=== PATIENT | male | born 1980 | race Caucasian/White ===

== ENCOUNTER 2025-05-21 14:36 | Emergency (ER) | payer BC, SELFPAY ==
[2025-05-21 14:43] VITALS: BP 132/86; PULSE 96; RESP 18; TEMP 36.7; O2SAT 99; BMI 28.9
--- NOTE | 2025-05-21 14:55 | ED_ITS ---
HPI - General Adult General Date Seen: 05/21/25 Chief complaint: Dizziness/Vertigo Stated complaint: vomiting, dizzy Time Seen by Provider: 05/21/25 14:37 History of Present Illness HPI narrative: Patient is a 45-year-old here at the insistence of his to be checked out for an episode this morning of feeling lightheaded and dizzy. He says he was at work at about 8:00 a.m., was not doing anything strenuous, and said he felt lightheaded and kind of sweaty, faint. He did not have any chest pain or difficulty breathing. He did have 1 small emesis at that time. He otherwise has been feeling well, no other vomiting or diarrhea, no black or bloody stools, no abdominal or back pain. He says he has a history of passing out once a couple of years ago when he had an abscess related to hidradenitis super T of a, and so when his came home at old lunchtime she insisted that he come in to be seen. He says that he left work about 931 home to rest and feels improved although not maybe back 100% of baseline. He has a very mild headache, no neck pain. He quit smoking a couple of years ago drinking 4 years ago, does still smoke marijuana. Related Data Home Medications ?Medication ?Instructions ?Recorded ?Confirmed No Known Home Medications 05/21/2505/06 Allergies Allergy/AdvReac Type Severity Reaction Status Date / Time No Known Drug Allergies Allergy Verified 05/21/25 14:47 Review of Systems Status of ROS: Reports: 10 or more systems reviewed and unremarkable except as noted in History and below [facility] Social History Non-prescribed substance use: denies use Exam Narrative: Exam Narrative: Vital signs reviewed In general, alert, nontoxic middle age male. Head: Normocephalic, atraumatic. Eyes: Sclera clear. Pupils equal and reactive. ENT: Mucous membranes moist. Throat normal, tonsils absent. TMs normal bilaterally. Neck: Supple without adenopathy. Heart: Regular rate and rhythm without murmur. Lungs: Clear. No increased work of breathing, crackles or wheezes. Abdomen: Soft, nontender to palpation. Extremities: Well perfused, pulses intact. No significant edema. Neurologic: Alert, conversant. Speech fluent, face symmetric. Moves all extremities equally. Skin: Warm, dry well perfused. Affect: Normal. Const: Vital Signs, click to edit/add: Vital Signs - 24 hr 05/21/25 14:43 Temperature 98.0 F Pulse Rate [Pulse Oximeter] 96 Respiratory Rate 18 Blood Pressure [Ri ght Upper Arm] 132/86 Pulse Oximetry 99 Oxygen Delivery Me thod Room Air Course Course ED Course: Patient presents with a near syncopal episode earlier this morning associated with diaphoresis and 1 small episode of vomiting. Overall symptoms improved. Exam is unrevealing. Labs reviewed all are normal. At this time, no clear cause for symptoms is found but patient is well appearing, symptoms have resolved, I think it is reasonable to let him go home. Primary care follow-up recommended if he is having ongoing symptoms, return any time for acute worsening or new symptoms. Vital Signs Vital signs: Initial Vital Signs Temperature 98.0 F 05/21/25 14:43 Temperature Source Temporal Artery Scan 05/21/25 14:43 Pulse Rate 96 05/21/25 14:43 Respiratory Rate 18 05/21/25 14:43 Blood Pressure 132/86 05/21/25 14:43 Blood Pressure Mean 101 05/21/25 14:43 Blood Pressure Position Sitting 05/21/25 14:43 Pulse Oximetry 99 05/21/25 14:43 Oxygen Delivery Method Room Air 05/21/25 14:43 Vital Signs Temperature 98.0 F 05/21/25 14:43 Pulse Rate 96 05/21/25 14:43 Respiratory Rate 18 05/21/25 14:43 Blood Pressure 132/86 05/21/25 14:43 Pulse Oximetry 99 05/21/25 14:43 Oxygen Delivery Method Room Air 05/21/25 14:43 Temperature 98.0 F 05/21/25 14:43 Pulse Rate 96 05/21/25 14:43 Respiratory Rate 18 05/21/25 14:43 Blood Pressure 132/86 05/21/25 14:43 Pulse Oximetry 99 05/21/25 14:43 Oxygen Delivery Method Room Air 05/21/25 14:43 Medical Decision Making Lab Data Lab results reviewed: Yes I reviewed the patient's lab results Labs: Lab Results 09/16/25 09/16/25 Range/Units 14:55 15:14 WBC 5.95 (4.50-11.00) K/uL RBC 5.04 (4.30-5.90) m/uL Hgb 15.0 (13.5-17.5) gm/dL Hct 44.8 (37.0-53.0) % MCV 89 (80-100) fL MCH 30 (26-34) pg MCHC 34 (32-36) gm/dL RDW Coeff of [place] 12.6 (11.5-15.5) % Plt Count 206 (140-440) K/uL Neut % (Auto) 67.2 (42.0-72.0) % Lymph % (Auto) 23.0 (20-44) % [place] % (Auto) 6.4 (0.0-11.0) % Eos % (Auto) 2.7 (0.0-7.0) % Baso % (Auto) 0.5 (0.0-3.0) % Neut # (Auto) 4.00 (1.7-7.0) K/uL Lymph # (Auto) 1.37 (0.90-2.90) K/uL [place] # (Auto) 0.40 (0.00-0.90) K/UL Eos # (Auto) 0.16 (0.00-0.50) K/uL Baso # (Auto) 0.03 (0.00-0.30) K/uL Abs Immat Gran (auto) 0.01 (0.00-0.30) K/uL Imm/Tot Granulo (auto) 0.2 % Sodium 138 (135-149) mmol/L Potassium 4.3 (3.6-5.1) mmol/L Chloride 103 (96-114) mmol/L Carbon Dioxide 29 (20-32) mmol/L Anion Gap 6 L (7-15) mEq/L BUN 16 (5-24) mg/dL Creatinine 1.0 (0.5-1.5) mg/dL Estimated Creat Clear 91.20 Estimated GFR 95 ml/min Glucose 98 (60-115) mg/dL Lactate 1.2 (0.5-1.9) mmol/L Calcium 9.3 (8.4-10.6) mg/dL Total Bilirubin 0.6 (0.1-1.5) mg/dL AST 36 H (12-35) U/L ALT 21 (4-50) U/L Alkaline Phosphatase 51 (40-150) U/L Total Protein 7.4 (6.0-8.3) g/dL Albumin 4.5 (3.3-5.0) g/dL POC Troponin I 0.00 L (0.01-0.04) ng/ml Discharge Plan Discharge Clinical Impression: Light-headedness Patient Disposition: Home, Self-Care Condition: Stable Instructions: Lightheadedness (ED) Additional Instructions: Labs today are all very reassuring, your hemoglobin is normal, kidney function, liver function, electrolytes an EKG all look good. I am not able to tell you exactly why you are feeling poorly this morning, but I think we have ruled out dangerous causes. If you have recurrent problems, have fainting, fevers, chest pain or other new or worsening symptoms, return any time. See her primary doctor if you have ongoing concerns. Prescriptions: No Action No Known Home Medications Follow Up/Referrals: Provider,Not a Local [Primary Care Provider, Family Practice] Stand Alone Forms: Anywhere to [facility] Info Instructions
[2025-05-21 15:19] LABS: Lactate Sepsis w/Reflex* 1.2 mmol/L (0.5-1.9)
[2025-05-21 15:24] LABS: Hematocrit* 44.8 % (37.0-53.0); Hemoglobin* 15.0 gm/dL (13.5-17.5); Immature Granulocytes Abs Auto 0.01 K/uL (0.00-0.30); Immature Granulocytes Pct Auto 0.2 %; Lymphocytes Absolute Auto 1.37 K/uL (0.90-2.90); Mean Corpuscular HGB Conc 34 gm/dL (32-36); Mean Corpuscular Hemoglobin 30 pg (26-34); Mean Corpuscular Volume 89 fL (80-100); RDW Coefficient of Variation % 12.6 % (11.5-15.5); Red Blood Count* 5.04 m/uL (4.30-5.90); Slide Review Reflex No; White Blood Count* 5.95 K/uL (4.50-11.00)
[2025-05-21 15:39] LABS: Albumin* 4.5 g/dL (3.3-5.0); Chloride* 103 mmol/L (96-114); Potassium* 4.3 mmol/L (3.6-5.1); Sodium* 138 mmol/L (135-149)
[2025-05-21 15:41] LABS: Blood Urea Nitrogen* 16 mg/dL (5-24); Creatinine* 1.0 mg/dL (0.5-1.5); Est. Creatinine Clearance* 91.20; Estimated Glomerular Filt Rate 95 ml/min
[2025-05-21 15:42] LABS: Alanine Aminotransferase* 21 U/L (4-50); Alkaline Phosphatase* 51 U/L (40-150); Anion Gap 6 mEq/L (7-15); Aspartate Amino Transferase* 36 U/L (12-35); Bilirubin Total* 0.6 mg/dL (0.1-1.5); Calcium* 9.3 mg/dL (8.4-10.6); Carbon Dioxide* 29 mmol/L (20-32); Glucose* 98 mg/dL (60-115); Total Protein* 7.4 g/dL (6.0-8.3)
[2025-05-21 16:07] LABS: Troponin, Point-of-Care* 0.00 ng/ml (0.01-0.04)
== END 2025-05-21 16:13 | disposition home or self-care (01) ==
PROVIDERS: Emergency Provider Emergency Medicine
DX: R42 Dizziness and giddiness (principal); R61 Generalized hyperhidrosis; R11.10 Vomiting, unspecified
CPT/HCPCS: 36415; 80053; 83605; 84484; 85025; 93005; 99284

== ENCOUNTER 2025-06-05 08:37 | Outpatient (CLI) | payer BC, SELFPAY | END 2025-06-05 08:38 | disposition home or self-care (01) | LOC: NFLDREF 06-07 14:04 | PROVIDERS: PCP Family Medicine; Referring Provider Family Medicine; Visit Provider Family Medicine | DX: L05.91 Pilonidal cyst without abscess (principal); E78.5 Hyperlipidemia, unspecified | CPT/HCPCS: 80053; 80061; G0103 ==

== ENCOUNTER 2025-06-13 11:53 | Outpatient (CLI) | payer BC, SELFPAY ==
--- NOTE | 2025-06-13 13:47 | P.ANES_ITS ---
Anesthesia Charges Start Date/Time Anesthesia Start Date: 06/13/25 Anesthesia Start Time: 13:03 Stop Date/Time Anesthesia Stop Date: 06/13/25 Anesthesia Stop Time: 13:45 Coding CPT Codes CPT Codes: MICHAEL LWR INTST NDSD NOS - 69070 ([id number]) P1 - NORMAL HEALTHY PATIENT, QK - CLASSIFIED ADVERTISING MANAGER 2-4 CNCRNT ANES PROC, QX - FLIGHT OPERATION COORDINATOR SVC W/ MED DIRECTION
--- NOTE | 2025-06-13 13:47 | W.ANESCHARGE ---
Anesthesia Charges Start Date/Time Anesthesia Start Date: 06/13/25 Anesthesia Start Time: 13:03 Stop Date/Time Anesthesia Stop Date: 06/13/25 Anesthesia Stop Time: 13:45 Coding CPT Codes CPT Codes: MICHAEL LWR INTST NDNM NOS - 21912 ([id number]) P1 - NORMAL HEALTHY PATIENT, QK - JEEP MECHANIC 2-4 CNCRNT ANES PROC, QX - FLOW SPECIALIST SVC W/ MED DIRECTION
--- NOTE | 2025-06-13 14:50 | P.ANES_ITS ---
Anesthesia Charges Start Date/Time Anesthesia Start Date: 06/13/25 Anesthesia Start Time: 13:03 Stop Date/Time Anesthesia Stop Date: 06/13/25 Anesthesia Stop Time: 13:45 Coding CPT Codes CPT Codes: MICHAEL LWR INTST NDNC NOS - 27734 ([id number]) P1 - NORMAL HEALTHY PATIENT, QK - LIGHT RAIL VEHICLE OPERATOR 2-4 CNCRNT ANES PROC, QX - UPSCALE SECURITY OFFICER SVC W/ MED DIRECTION
--- NOTE | 2025-06-13 14:50 | W.ANESCHARGE ---
Anesthesia Charges Start Date/Time Anesthesia Start Date: 06/13/25 Anesthesia Start Time: 13:03 Stop Date/Time Anesthesia Stop Date: 06/13/25 Anesthesia Stop Time: 13:45 Coding CPT Codes CPT Codes: MICHAEL LWR INTST NDDC NOS - 64413 ([id number]) P1 - NORMAL HEALTHY PATIENT, QK - STAVE JOINTER 2-4 CNCRNT ANES PROC, QX - DRILL OPERATOR AUTOMATIC SVC W/ MED DIRECTION
== END 2025-06-13 11:54 | disposition home or self-care (01) ==
PROVIDERS: PCP Family Medicine; Visit Provider Surgery
DX: Z12.11 Encounter for screening for malignant neoplasm of colon (principal); Z83.719 Family history of colon polyps, unspecified; D12.2 Benign neoplasm of ascending colon; D12.4 Benign neoplasm of descending colon; D12.7 Benign neoplasm of rectosigmoid junction
CPT/HCPCS: 00811; 00812; 45385; J2704

== ENCOUNTER 2025-06-18 11:50 | Outpatient (CLI) | payer BC, SELFPAY | END 2025-06-18 11:51 | disposition home or self-care (01) | LOC: NFLDREF 07-04 02:17 | PROVIDERS: PCP Family Medicine; Referring Provider Family Medicine; Visit Provider Surgery | DX: L73.2 Hidradenitis suppurativa (principal) | CPT/HCPCS: 87070; 87186 ==